=== PATIENT | male | born 1945 | race Caucasian/White ===

== ENCOUNTER 2025-05-24 00:20 | Inpatient (IN) | payer MEDICARE, OTHER ==
[~2025-05-24] VITALS: Ht 175.3 cm; Wt 63.7 kg
[2025-05-24] MEDS ORDERED: REMEDY ESSENTIAL ZINC PASTE 113 GM TP PRN (00:45)
[2025-05-24] MEDS ORDERED: ACETAMINOPHEN 325 MG TABLET PO PRN (00:45)
[2025-05-24] MEDS ORDERED: MAGNESIUM HYDROXIDE 30 ML LIQUID UDC PO PRN (00:45)
[2025-05-24] MEDS ORDERED: ZOLPIDEM 5 MG TABLET PO PRN (00:45)
[2025-05-24] MEDS ORDERED: ONDANSETRON 4 MG/2 ML VIAL IV PRN (00:45)
[2025-05-24 02:05] LABS: PLATELET COUNT (AUTO) 242 K/uL (152-348); RED BLOOD CELL COUNT(AUTO) 3.69 MIL/uL (4.06-5.63); RED CELL DISTRIBUTION WIDTH 13.3 % (12.1-16.2); WHITE BLOOD COUNT (AUTO) 4.5 K/uL (3.6-10.2)
[2025-05-24 02:19] LABS: ASPARTATE AMINOTRANSFERASE 14 U/L (15-37); CREATININE 1.2 mg/dL (0.6-1.3); SODIUM SERUM 142 mmol/L (136-145); TOTAL PROTEIN, SERUM 6.3 g/dL (6.4-8.2); UREA NITROGEN, BLOOD 34 mg/dL (7-18)
[2025-05-24 03:17] LABS: BASOPHILS % (MANUAL) 1 % (0-2); EOSINOPHILS % (MANUAL) 5 % (0-8); LYMPHOCYTES % (MANUAL) 27 % (20-40); MONOCYTES % (MANUAL) 13 % (2-10); NEUTROPHILS % (MANUAL) 54 % (42-75); PLATELET ESTIMATE ADEQUATE
[2025-05-24] MEDS: PANTOPRAZOLE SODIUM 40 MG TABLET.DR PO SCH (06:08)
[2025-05-24 07:16] VITALS: BP 129/75; TEMP 98.5; O2SAT 100
[2025-05-24] MEDS: IV NS 1000 ML 1,000 ML IV PRN (07:30)
[2025-05-24 08:30] VITALS: BP 138/70; TEMP 98; O2SAT 100
[2025-05-24] MEDS: ENOXAPARIN SODIUM 40 MG/0.4 ML DISP.SYRIN SQ SCH (09:10)
[2025-05-24 12:00] VITALS: BP 108/68; TEMP 98.3; O2SAT 98
[2025-05-24] MEDS: QUETIAPINE FUMARATE 25 MG TABLET PO PRN (13:11)
[2025-05-24 16:41] VITALS: BP 110/48; TEMP 98; O2SAT 95
[2025-05-24 22:02] VITALS: BP 144/74; TEMP 98.8; O2SAT 99
[2025-05-24 23:46] LABS: *BILIRUBIN,URIN NEGATIVE (NEGATIVE); *KETONES,URINE NEGATIVE (NEGATIVE); *PROTEIN,URINE NEGATIVE (NEGATIVE); *UROBILINOGEN,URINE 0.2 E.U./dl (NORMAL); LEUKOCYTE ESTERASE ,URINE 1+ (NEGATIVE); NITRITE, URINE NEGATIVE (NEGATIVE); UGLUCOSE 3+ (NEGATIVE)
[2025-05-24 23:48] LABS: *BLOOD, URINE TRACE (NEGATIVE); *CLARITY,URINE HAZY (CLEAR); *COLOR,URINE LIGHT YELLOW (YELLOW)
[2025-05-24 23:56] LABS: *CREATININE,URINE 32.7 mg/dL (30-125); *SODIUM RNDM,URINE 125.0 mmol/L (40-220); *URINE TOTAL PROTEIN RANDOM 18.8 mg/dL (<150/24HR)
[2025-05-25 07:18] LABS: PLATELET COUNT (AUTO) 237 K/uL (152-348); RED BLOOD CELL COUNT(AUTO) 3.79 MIL/uL (4.06-5.63); RED CELL DISTRIBUTION WIDTH 12.9 % (12.1-16.2); WHITE BLOOD COUNT (AUTO) 3.6 K/uL (3.6-10.2)
[2025-05-25 07:43] LABS: CREATININE 0.9 mg/dL (0.6-1.3); SODIUM SERUM 140 mmol/L (136-145); UREA NITROGEN, BLOOD 19 mg/dL (7-18)
[2025-05-25 09:16] LABS: EOSINOPHILS % (MANUAL) 3 % (0-8); LYMPHOCYTES % (MANUAL) 25 % (20-40); MONOCYTES % (MANUAL) 16 % (2-10); NEUTROPHILS % (MANUAL) 55 % (42-75); PLATELET ESTIMATE ADEQUATE
[2025-05-25 11:37] VITALS: BP 114/57; TEMP 98.9; O2SAT 98
[2025-05-25] MEDS: QUETIAPINE FUMARATE 25 MG TABLET PO PRN (12:11)
[2025-05-25] MEDS ORDERED: CEPH500C2 PO (12:28)
[2025-05-25 15:49] VITALS: BP 128/61; TEMP 98.4; O2SAT 97
[2025-05-25 19:52] VITALS: BP 110/63; TEMP 97.8; O2SAT 95
[2025-05-26 07:17] VITALS: BP 120/68; TEMP 98; O2SAT 95
[2025-05-26 11:37] VITALS: BP 97/65; TEMP 98.4; O2SAT 97
[2025-05-26 16:00] VITALS: BP 140/78; TEMP 98.2; O2SAT 98
[2025-05-26 19:53] VITALS: BP 149/74; TEMP 98.6; O2SAT 97
[2025-05-27 05:17] VITALS: BP 129/73; TEMP 98; O2SAT 95
[2025-05-27 11:35] VITALS: BP 99/53; TEMP 97.8; O2SAT 95
[2025-05-27] MEDS ORDERED: CEFT1PIG6 IV (12:43)
== END 2025-05-27 15:10 | DRG 682 ==
LOC: MEDSURG3 00:20
PROVIDERS: ADMIT Student in an Organized Health Care Education/Training Program; ATTEND Nurse Practitioner Acute Care
DX: N17.9 Acute kidney failure, unspecified (principal); G93.41 Metabolic encephalopathy; F03.92 Unspecified dementia, unspecified severity, with psychotic disturbance; F03.94 Unspecified dementia, unspecified severity, with anxiety; F03.93 Unspecified dementia, unspecified severity, with mood disturbance; N39.0 Urinary tract infection, site not specified; E87.5 Hyperkalemia; M89.8X9 Other specified disorders of bone, unspecified site; D64.9 Anemia, unspecified; K21.9 Gastro-esophageal reflux disease without esophagitis; I10 Essential (primary) hypertension; E11.9 Type 2 diabetes mellitus without complications; B96.89 Other specified bacterial agents as the cause of diseases classified elsewhere
CPT/HCPCS: 36415; 70030-TC; 83735; 84100; 84300; 84443; 87086; A4663; G0378; J0696; J1650; J7040